=== PATIENT | female | born 1950 | race Caucasian/White ===

== ENCOUNTER 2018-02-02 08:09 | Outpatient (RCR) | payer MEDICARE, OTHER, SELFPAY | END 2018-02-02 08:10 | disposition home or self-care (01) | LOC: PT 08:09 | PROVIDERS: Visit Provider Physician Assistant Surgical | DX: M17.10 Unilateral primary osteoarthritis, unspecified knee (principal) | CPT/HCPCS: 97163 ==

== ENCOUNTER 2018-11-04 13:00 | Outpatient (RCR) | payer MEDICARE, OTHER, SELFPAY | END 2018-11-04 13:05 | disposition home or self-care (01) | LOC: PT 13:00 | PROVIDERS: Visit Provider Orthopaedic Surgery Adult Reconstructive Orthopaedic Surgery | DX: Z96.651 Presence of right artificial knee joint (principal); M25.561 Pain in right knee | CPT/HCPCS: 97010; 97014; 97016; 97110; 97140; 97163; 97164; G0283 ==

== ENCOUNTER 2019-11-16 09:00 | Outpatient (RCR) | payer MEDICARE, OTHER, SELFPAY | END 2019-11-16 09:05 | disposition home or self-care (01) | LOC: PT 09:00 | DX: M25.562 Pain in left knee (principal); Z96.652 Presence of left artificial knee joint | CPT/HCPCS: 97010; 97014; 97110; 97163; G0283 ==

== ENCOUNTER → 2021-01-14 19:21 | Outpatient (CLI) | payer MEDICARE, OTHER, SELFPAY | PROVIDERS: Visit Provider Nurse Practitioner Family | DX: Z20.822 Contact with and (suspected) exposure to COVID-19 (principal) | CPT/HCPCS: C9803; U0003; U0005 ==